=== PATIENT | female | born 1970 | race Caucasian/White ===

== ENCOUNTER 2024-01-10 20:16 | Emergency (ER) | payer OTHER ==
[~2024-01-10] VITALS: Ht 167.6 cm; Wt 85.7 kg
[2024-01-10] MEDS ORDERED: TRAZODONE100 MG PO (20:33)
[2024-01-10] MEDS ORDERED: Tdap Vaccine 0.5 ML SYR (Adult Vaccine) IM ONE (21:25)
[2024-01-10] MEDS ORDERED: CEPHALEXIN500 M1 PO (21:43)
== END 2024-01-10 21:58 | disposition home or self-care (01) ==
LOC: ED 20:16
DX: S91.012A Laceration without foreign body, left ankle, initial encounter (principal); F41.9 Anxiety disorder, unspecified; F32.A Depression, unspecified; Z88.8 Allergy status to other drugs, medicaments and biological substances; W26.0XXA Contact with knife, initial encounter; Y93.01 Activity, walking, marching and hiking; Y92.89 Other specified places as the place of occurrence of the external cause; Y99.8 Other external cause status